=== PATIENT | male | born 1965 | race Caucasian/White ===

== ENCOUNTER → 2018-10-02 | Day surgery (SDC) | payer OTHER ==
[~2018-10-02] MED LIST: Lactated Ringers 1,000 ML IV SCH; Lidocaine 1% 4 ML ONE; Lidocaine 1%/Sod Bicarbonate in NS 8.4% 1 ML Syringe IDERM PRN; Propofol 200 MG/20 ML SDV ONE; Sodium Chloride 0.9% 10 ML Syringe FLUSH PRN; fentaNYL 100 MCG/2 ML SDV ONE
--- NOTE | 2018-10-02 07:36 | PCM.PREANE ---
Preanesthetic Assessment - Procedure Proposed Procedure: egd diagnostic - Anesthesia/Transfusion/Family Hx Anesthesia History: Prior Anesthesia Without Reaction Family History of Anesthesia Reaction: No Transfusion History: No Prior Transfusion(s) - Review of Systems General: No Symptoms Pulmonary: No Symptoms, Cough (has a cold) Cardiovascular: No Symptoms Gastrointestinal: No Symptoms Neurological: No Symptoms Other: Reports: Sinus Problem - Physical Assessment NPO Status Date: 10/01/18 NPO Status Time: 20:30 Pulse: 72 O2 Sat by Pulse Oximetry: 94 Respiratory Rate: 16 Blood Pressure: 145/94 Temperature: 98.7 F Height: 5 ft 11 in Weight: 136 kg ASA Class: 2 Mental Status: Alert & Oriented x3 Airway Class: Mallampati = 1 Dentition: Reports: Normal Dentition Thyro-Mental Finger Breadths: 3 Mouth Opening Finger Breadths: 3 ROM/Head Extension: Full Lungs: Clear to Auscultation, Normal Respiratory Effort Cardiovascular: Regular Rate, Regular Rhythm - Allergies Allergies/Adverse Reactions: Allergies Allergy/AdvReac Type Severity Reaction Status Date / Time erythromycin base Allergy Cannot Verified 09/29/18 11:22 Remember lisinopril Allergy Anaphylactic Verified 09/29/18 11:22 Shock moxifloxacin [From Avelox] Allergy Cannot Verified 09/29/18 11:22 Remember pantoprazole [From Protonix] Allergy Cannot Verified 09/29/18 11:22 Remember Kmuowxp-Dac-Bim Reductase Allergy Muscle Verified 09/29/18 11:22 Inhibitor Aches - Blood Blood Available: No - Acknowledgements Anesthesia Type Planned: MAC Pt an Appropriate Candidate for the Planned Anesthesia: Yes Alternatives and Risks of Anesthesia Discussed w Pt/Guardian: Yes Pt/Guardian Understands and Agrees with Anesthesia Plan: Yes PreAnesthesia Questionnaire HEENT History: Reports: None Other HEENT History: hard of hearing, impacted cerumen, tinnitus Cardiovascular History: Reports: High Cholesterol, Hypertension Respiratory History: Reports: None, Other (See Below) (has a cold now) Gastrointestinal History: Reports: GERD Genitourinary History: Reports: None 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 Musculoskeletal History: Reports: None Other Musculoskeletal History: left knee pain Neurological History: Reports: None Psychiatric History: Reports: None Endocrine/Metabolic History: Reports: None, Obesity/BMI 30+ Hematologic History: Reports: None Immunologic History: Reports: None Oncologic (Cancer) History: Reports: None Dermatologic History: Reports: None - Past Surgical History Head Surgeries/Procedures: Reports: None HEENT Surgical History: Reports: Other (See Below) Other HEENT Surgeries/Procedures: Sinus surgery for deviated septum and neck gland removed Cardiovascular Surgical History: Reports: None Respiratory Surgical History: Reports: None GI Surgical History: Reports: Colonoscopy Male Surgical History: Reports: None Endocrine Surgical History: Reports: None Neurological Surgical History: Reports: None Musculoskeletal Surgical History: Reports: Other (See Below) Other Musculoskeletal Surgeries/Procedures:: Right hand surgery - SUBSTANCE USE Smoking Status *Q: Never Smoker Tobacco Use Within Last Twelve Months: No, Other (See Below) (chew in the past) Second Hand Smoke Exposure: No Days Per Week of Alcohol Use: 1 (rarely) Recreational Drug Use History: No - HOME MEDS Home Medications: Home Meds Ascorbic Acid [Vitamin C] 1,000 mg PO BID 12/12/15 [History] Aspirin 81 mg PO DAILY 12/12/15 [History] Gluc HCl/Csa/Nancy Hy/Hyalur Ac [Glucosamine Chondroitin] 1 tab PO DAILY [History] Losartan/Hydrochlorothiazide [Losartan-HCTZ 100-12.5 MG] 1 tab PO DAILY [History] Ubidecarenone [Co Q-10] 100 mg PO DAILY 12/12/15 [History] Famotidine [Pepcid] 20 mg PO BID 09/29/18 [History] Ibuprofen 800 mg PO DAILY PRN 09/29/18 [History] Multivitamin with Minerals [Multivitamins with Minerals] 1 tab PO DAILY [History] Willow-3/DHA/Epa/Fish Oil [Willow-3 Fish Oil 1,000 MG Sfgl] 1,000 mg PO DAILY [History] atorvaSTATin [Lipitor] 20 mg PO BEDTIME 09/29/18 [History] - CURRENT (IN HOUSE) MEDS Current Meds: Current Medications Lactated Ringer's (Ringers, Lactated) 1,000 mls @ 125 mls/hr IV ASDIRECTED DMITRI Stop: 10/02/18 23:00 Lidocaine/Sodium Bicarbonate (Buffered Lidocaine 1% In Ns 8.4%) 0.25 ml IDERM ONETIME PRN PRN Reason: Prior to IV Start Stop: 10/02/18 18:00 Sodium Chloride (Saline Flush) 10 ml FLUSH ASDIRECTED PRN PRN Reason: Keep Vein Open Stop: 10/02/18 18:00 Discontinued Medications Fentanyl (Sublimaze) Confirm Administered Dose 100 mcg .ROUTE .STK-MED ONE Stop: 10/02/18 07:19 Lidocaine HCl (Xylocaine-Mpf 1%) Confirm Administered Dose 4 mls @ as directed .ROUTE .STK-MED ONE Stop: 10/02/18 07:19 Propofol (Diprivan 20 Ml) Confirm Administered Dose 200 mg .ROUTE .STK-MED ONE Stop: 10/02/18 07:19
--- NOTE | 2018-10-02 08:41 | PCM48HPAN ---
Post Anesthesia Note - EVALUATION WITHIN 48HRS OF ANESTHETIC Vital Signs in Normal Range: Yes Patient Participated in Evaluation: Yes Respiratory Function Stable: Yes Airway Patent: Yes Cardiovascular Function Stable: Yes Hydration Status Stable: Yes Pain Control Satisfactory: Yes Nausea and Vomiting Control Satisfactory: Yes Mental Status Recovered: Yes Pulse Rate: 67 SaO2: 93 Resp Rate: 16 Temperature: 98.4 F Blood Pressure: 142/93
--- NOTE | 2018-10-02 08:46 | PCM.OPNOTE ---
- General Post-Op/Procedure Note Date of Surgery/Procedure: 10/02/18 Operative Procedure(s): EGD with bx Pre Op Diagnosis: dysphagia Post-Op Diagnosis: Same Anesthesia Technique: MAC Primary Surgeon: Regan El EBL in mLs: 0 Complications: None Condition: Good
[2018-10-02 09:14] VITALS: BP 127/90
--- NOTE | 2018-10-04 06:36 | OR ---
DATE OF OPERATION: 10/02/2018 SURGEON: Regan El MD PREOPERATIVE DIAGNOSIS: Dysphagia. POSTOPERATIVE DIAGNOSIS: Dysphagia. OPERATION PERFORMED: Esophagogastroduodenoscopy with biopsy. FINDINGS: Erosions in the antrum, which were biopsied. Flattened gastric mucosa suggesting chronic gastritis and questionable abnormality at the GE junction. Biopsies were taken. Hiatal hernia is present. The second portion of the duodenum, duodenal bulb, pyloric channel, and balance of the esophagus were unremarkable. ANESTHESIA: Done under IV sedation. DESCRIPTION OF PROCEDURE: The patient was taken to the endoscopy room, placed in the supine position, connected to monitoring equipment, given IV sedation. The patient was then placed in left lateral position. Bite block was inserted and video Olympus gastroscope placed into the posterior oropharynx. Under direct vision, it was threaded past the cricopharyngeus, down the esophagus, into the stomach. The stomach was insufflated, and the scope passed through the pylorus to the second portion of the duodenum. It was slowly withdrawn noting the normal second portion of the duodenum, duodenal bulb, pyloric channel. Antrum showed superficial erosions, which were biopsied. Body, cardia, fundus, and stomach were viewed. J-maneuver was performed. No specific abnormality was seen. It did see a sliding hiatal hernia. Scope was withdrawn to the GE junction, which was not sharp and not delineated suggesting edema, of which biopsies were taken to elucidate this area. The rest of the esophagus viewed as the scope withdrawn was unremarkable. The patient tolerated the procedure and sent to recovery room in a stable condition to be followed up in clinic. ESTIMATED BLOOD LOSS: MMODAL /[id number]
== END | disposition home or self-care (01) ==
LOC: JD.SDS 06:57
PROVIDERS: ATTEND Surgery
DX: K20.0 Eosinophilic esophagitis (principal); K29.50 Unspecified chronic gastritis without bleeding; K25.9 Gastric ulcer, unspecified as acute or chronic, without hemorrhage or perforation; K44.9 Diaphragmatic hernia without obstruction or gangrene; I10 Essential (primary) hypertension; E66.9 Obesity, unspecified; Z68.41 Body mass index [BMI] 40.0-44.9, adult; E78.5 Hyperlipidemia, unspecified; Z87.891 Personal history of nicotine dependence; Z79.82 Long term (current) use of aspirin; Z79.899 Other long term (current) drug therapy
CPT/HCPCS: 43239; J2704; J3010; J7120; J2001

== ENCOUNTER 2018-12-18 07:22 | Day surgery (SDC) | payer OTHER ==
[~2018-12-18 07:22] MED LIST changes: -Lidocaine 1% 4 ML ONE; -Propofol 200 MG/20 ML SDV ONE; -fentaNYL 100 MCG/2 ML SDV ONE
--- NOTE | 2018-12-18 07:41 | PCM.PREANE ---
Preanesthetic Assessment - Anesthesia/Transfusion/Family Hx Anesthesia History: Prior Anesthesia Without Reaction Family History of Anesthesia Reaction: No Transfusion History: No Prior Transfusion(s) - Review of Systems General: No Symptoms Pulmonary: No Symptoms Cardiovascular: No Symptoms Gastrointestinal: No Symptoms Neurological: No Symptoms Other: Reports: None - Physical Assessment NPO Status Date: 12/17/18 NPO Status Time: 19:30 Pulse: 73 O2 Sat by Pulse Oximetry: 96 Respiratory Rate: 16 Blood Pressure: 133/94 Temperature: 37.0 C Height: 1.8 m Weight: 136.3 kg ASA Class: 2 Mental Status: Alert & Oriented x3 Airway Class: Mallampati = 2 Dentition: Reports: [place](s) Thyro-Mental Finger Breadths: 3 Mouth Opening Finger Breadths: 3 ROM/Head Extension: Full Lungs: Clear to Auscultation, Normal Respiratory Effort Cardiovascular: Regular Rate, Regular Rhythm - Allergies Allergies/Adverse Reactions: Allergies Allergy/AdvReac Type Severity Reaction Status Date / Time erythromycin base Allergy Cannot Verified 12/15/18 10:00 Remember lisinopril Allergy Anaphylactic Verified 12/15/18 10:00 Shock moxifloxacin [From Avelox] Allergy Cannot Verified 12/15/18 10:00 Remember pantoprazole [From Protonix] Allergy Cannot Verified 12/15/18 10:00 Remember Yjwhbgo-Avl-Hnr Reductase AdvReac Muscle Verified 12/15/18 10:00 Inhibitor Aches - Anesthesia Plan Pre-Op Medication Ordered: None - Acknowledgements Anesthesia Type Planned: MAC Pt an Appropriate Candidate for the Planned Anesthesia: Yes Alternatives and Risks of Anesthesia Discussed w Pt/Guardian: Yes Pt/Guardian Understands and Agrees with Anesthesia Plan: Yes PreAnesthesia Questionnaire HEENT History: Reports: Impaired Vision Other HEENT History: hard of hearing, impacted cerumen, tinnitus Cardiovascular History: Reports: High Cholesterol, Hypertension Respiratory History: Reports: None Gastrointestinal History: Reports: Gastritis, GERD, Hiatal Hernia, Other (See Below) Other Gastrointestinal History: ELEVATED LIPOPROTEIN, GASTRIC EROSIONS, ESOPHAGITIS Genitourinary History: Reports: None 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 Musculoskeletal History: Reports: None Other Musculoskeletal History: left knee pain Neurological History: Reports: None Psychiatric History: Reports: None Endocrine/Metabolic History: Reports: None Hematologic History: Reports: None Immunologic History: Reports: None Oncologic (Cancer) History: Reports: None Dermatologic History: Reports: None - Past Surgical History Head Surgeries/Procedures: Reports: None HEENT Surgical History: Reports: Naso-Sinus Surgery Cardiovascular Surgical History: Reports: None Respiratory Surgical History: Reports: None GI Surgical History: Reports: Colonoscopy, EGD Female Surgical History: Reports: None Male Surgical History: Reports: None Endocrine Surgical History: Reports: None Neurological Surgical History: Reports: None Musculoskeletal Surgical History: Reports: Other (See Below) Other Musculoskeletal Surgeries/Procedures:: RIGHT HAND SURGERY Oncologic Surgical History: Reports: None Dermatological Surgical History: Reports: None - SUBSTANCE USE Smoking Status *Q: Former Smoker Recreational Drug Use History: No - HOME MEDS Home Medications: Home Meds Aspirin 81 mg PO DAILY 12/12/15 [History] Gluc HCl/Csa/Nancy Hy/Hyalur Ac [Glucosamine Chondroitin] 1 tab PO BID 12/12/15 [ History] Losartan/Hydrochlorothiazide [Losartan-HCTZ 100-12.5 MG] 1 tab PO DAILY [History] Ubidecarenone [Co Q-10] 100 mg PO DAILY 12/12/15 [History] Ibuprofen 800 mg PO DAILY PRN 09/29/18 [History] Multivitamin with Minerals [Multivitamins with Minerals] 1 tab PO DAILY [History] Osgood-3/DHA/Epa/Fish Oil [Osgood-3 Fish Oil 1,000 MG Sfgl] 1,000 mg PO DAILY [History] atorvaSTATin [Lipitor] 20 mg PO BEDTIME 09/29/18 [History] Omeprazole Magnesium [Prilosec Otc] 20 mg PO QAM 12/15/18 [History] - CURRENT (IN HOUSE) MEDS Current Meds: Current Medications Lactated Ringer's (Ringers, Lactated) 1,000 mls @ 125 mls/hr IV ASDIRECTED MDITRI Stop: 12/18/18 23:00 Lidocaine/Sodium Bicarbonate (Buffered Lidocaine 1% In Ns 8.4%) 0.25 ml IDERM ONETIME PRN PRN Reason: Prior to IV Start Stop: 12/18/18 18:00 Sodium Chloride (Saline Flush) 10 ml FLUSH ASDIRECTED PRN PRN Reason: Keep Vein Open Stop: 12/18/18 18:00
[2018-12-18] MEDS ORDERED: fentaNYL 100 MCG/2 ML SDV ONE (08:06)
[2018-12-18] MEDS ORDERED: Propofol 200 MG/20 ML SDV ONE ×2 (08:06→08:09)
[2018-12-18] MEDS ORDERED: Midazolam 1 MG/ML 2 ML SDV ONE (08:07)
--- NOTE | 2018-12-18 08:36 | PCM.OPNOTE ---
- General Post-Op/Procedure Note Date of Surgery/Procedure: 12/18/18 Operative Procedure(s): EGD with biopsy and balloon dilitation Pre Op Diagnosis: dysphagia Post-Op Diagnosis: Same Anesthesia Technique: MAC Primary Surgeon: Regan El EBL in mLs: 0 Complications: None Condition: Good
[2018-12-18 09:35] VITALS: BP 127/70
--- NOTE | 2018-12-18 15:05 | OR ---
DATE OF OPERATION: 12/18/2018 SURGEON: Regan El MD PREOPERATIVE DIAGNOSIS: Dysphagia, history of eosinophilic esophagitis. POSTOPERATIVE DIAGNOSIS: Dysphagia, history of eosinophilic esophagitis. OPERATION PERFORMED: EGD with biopsy and balloon dilatation to 54[place] done under IV sedation. FINDINGS: Second portion of the duodenum, duodenal bulb, and pyloric channel, antrum, body, cardia, stomach, fundus was unremarkable. Hiatus showed a small sliding hiatal hernia. GE junction about 40 cm. The Z-line was not sharp and there was inflammation around there. Four-quadrant biopsies were taken. Rest of the esophagus was unremarkable and the area was dilated empirically. DESCRIPTION OF PROCEDURE: The patient taken to the endoscopy room, placed in a supine position, connected to monitoring equipment given IV sedation and placed in left lateral position. Bite block was inserted. A video Olympus gastroscope placed in a posterior oropharynx. Under direct vision, threaded past the cricopharyngeus down the esophagus, into the stomach. The stomach was insufflated and the scope passed through the pylorus to the second portion of the duodenum were slowly withdrawn showing normal second portion of the duodenal bulb and pyloric channel. Antrum was unremarkable. Biopsies were taken that could be looking for H pylori. The body and cardia of the stomach and J-maneuver showed the cardia and the fundus and a small sliding hiatal hernia. Scope was withdrawn and the GE junction showed some inflammation there and the Z-line was not readily evident among the inflammation. Four-quadrant biopsies were taken. A balloon was then inserted down the scope and this area was dilated up to 54-[place]. The scope was withdrawn showing no other pathology. The patient tolerated procedure and will be followed up in the clinic. ANESTHESIA: ESTIMATED BLOOD LOSS: MMODAL /[id number]
== END 2018-12-18 09:23 | disposition home or self-care (01) ==
LOC: JD.SDS 07:22
PROVIDERS: ATTEND Surgery
DX: K20.0 Eosinophilic esophagitis (principal); I10 Essential (primary) hypertension; E78.00 Pure hypercholesterolemia, unspecified; K21.9 Gastro-esophageal reflux disease without esophagitis; Z87.891 Personal history of nicotine dependence; Z79.82 Long term (current) use of aspirin; Z79.899 Other long term (current) drug therapy; Z88.1 Allergy status to other antibiotic agents; Z88.8 Allergy status to other drugs, medicaments and biological substances
CPT/HCPCS: 43239; 43249; J2250; J2704; J3010; J7120

== ENCOUNTER 2021-01-26 07:44 | Day surgery (SDC) | payer BC, OTHER ==
[~2021-01-26 07:44] MED LIST changes: +Lidocaine 1% 4 ML ONE; +Propofol 200 MG/20 ML SDV ONE
--- NOTE | 2021-01-26 08:18 | PCM.PREANE ---
Preanesthetic Assessment - Procedure Proposed Procedure: EGD - Anesthesia/Transfusion/Family Hx Anesthesia History: Prior Anesthesia Without Reaction Family History of Anesthesia Reaction: No Transfusion History: No Prior Transfusion(s) Intubation History: Unknown - Review of Systems General: No Symptoms Pulmonary: No Symptoms Cardiovascular: No Symptoms Gastrointestinal: No Symptoms Neurological: No Symptoms Other: Reports: None - Physical Assessment NPO Status Date: 01/25/21 NPO Status Time: 20:00 Vital Signs: Last Vital Signs Temp 36.8 C 01/26/21 08:00 Pulse 71 01/26/21 08:00 Resp 16 01/26/21 08:00 BP 111/85 01/26/21 08:00 Pulse Ox 96 01/26/21 08:00 ASA Class: 3 Mental Status: Alert & Oriented x3 Airway Class: Mallampati = 4 Dentition: Reports: Normal Dentition Thyro-Mental Finger Breadths: 3 Mouth Opening Finger Breadths: 3 ROM/Head Extension: Full Lungs: Clear to Auscultation, Normal Respiratory Effort Cardiovascular: Regular Rate, Regular Rhythm - Allergies Allergies/Adverse Reactions: Allergies Allergy/AdvReac Type Severity Reaction Status Date / Time erythromycin base Allergy Cannot Verified 01/23/21 10:15 Remember lisinopril Allergy Anaphylactic Verified 01/23/21 10:15 Shock magnesium Allergy Cannot Verified 01/23/21 10:15 Remember moxifloxacin [From Avelox] Allergy Cannot Verified 01/23/21 10:15 Remember pantoprazole [From Protonix] Allergy Cannot Verified 01/23/21 10:15 Remember Fqwgdzs-Wvm-Pbd Reductase AdvReac Muscle Verified 01/23/21 10:15 Inhibitor Aches - Blood Blood Available: No - Anesthesia Plan Pre-Op Medication Ordered: None - Acknowledgements Anesthesia Type Planned: MAC Pt an Appropriate Candidate for the Planned Anesthesia: Yes Alternatives and Risks of Anesthesia Discussed w Pt/Guardian: Yes Pt/Guardian Understands and Agrees with Anesthesia Plan: Yes PreAnesthesia Questionnaire HEENT History: Reports: Impaired Vision Other HEENT History: hard of hearing, impacted cerumen, tinnitus Cardiovascular History: Reports: High Cholesterol, Hypertension Respiratory History: Reports: None Gastrointestinal History: Reports: Gastritis, GERD, Hiatal Hernia, Other (See Below) Other Gastrointestinal History: ELEVATED LIPOPROTEIN, GASTRIC EROSIONS, ESOPHAGITIS, acid indigestion Genitourinary History: Reports: None 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 Musculoskeletal History: Other Musculoskeletal History: left knee pain Neurological History: Reports: None Psychiatric History: Reports: None Endocrine/Metabolic History: Reports: Obesity/BMI 30+ Hematologic History: Reports: None Immunologic History: Reports: None Oncologic (Cancer) History: Reports: None Dermatologic History: Reports: None - Past Surgical History Head Surgeries/Procedures: Reports: None HEENT Surgical History: Reports: Naso-Sinus Surgery Other HEENT Surgeries/Procedures: Sinus surgery for deviated septum and neck gland removed Cardiovascular Surgical History: Reports: None Other Cardiovascular Surgeries/Procedures: angioplasty Respiratory Surgical History: Reports: None GI Surgical History: Reports: Colonoscopy, EGD Female Surgical History: Reports: None Male Surgical History: Reports: None Endocrine Surgical History: Reports: None Neurological Surgical History: Reports: None Musculoskeletal Surgical History: Reports: Other (See Below) Other Musculoskeletal Surgeries/Procedures:: RIGHT HAND SURGERY Oncologic Surgical History: Reports: None - SUBSTANCE USE Tobacco Use Status *Q: Former Tobacco User Recreational Drug Use History: No - HOME MEDS Home Medications: Home Meds Aspirin 81 mg PO DAILY 12/12/15 [History] Losartan/Hydrochlorothiazide [Losartan-HCTZ 100-12.5 MG] 1 tab PO DAILY 12/12/15 [History] Ubidecarenone [Co Q-10] 100 mg PO DAILY 12/12/15 [History] [place]-3/DHA/Epa/Fish Oil [[place]rick-3 Fish Oil 1,000 MG Sfgl] 1,000 mg PO DAILY 09/29/18 [History] atorvaSTATin [Lipitor] 20 mg PO BEDTIME 09/29/18 [History] Ascorbic Acid [Vitamin C] 1,000 mg PO BID 12/18/18 [History] Ibuprofen 200 - 600 mg PO Q6H PRN 12/19/20 [History] Multivitamin 1 tab PO DAILY 12/19/20 [History] Omeprazole Magnesium [Prilosec Otc] 20 mg PO DAILY 12/19/20 [History] - CURRENT (IN HOUSE) MEDS Current Meds: Current Medications Lactated Ringer's (Ringers, Lactated) 1,000 mls @ 125 mls/hr IV ASDIRECTED DMITRI Stop: 01/26/21 23:00 Last Admin: 01/26/21 08:00 Dose: 125 mls/hr Documented by: Lidocaine/Sodium Bicarbonate (Lidocaine 1%/Sod Bicarbonate In Ns 8.4% 1 Ml Syringe) 0.25 ml IDERM ONETIME PRN PRN Reason: Prior to IV Start Stop: 01/26/21 18:00 Last Admin: 01/26/21 08:00 Dose: 0.25 ml Documented by: Sodium Chloride (Sodium Chloride 0.9% 10 Ml Syringe) 10 ml FLUSH ASDIRECTED PRN PRN Reason: Keep Vein Open Stop: 01/26/21 18:00 Discontinued Medications Lactated Ringer's (Ringers, Lactated) 1,000 mls @ 125 mls/hr IV ASDIRECTED DMITRI Stop: 12/22/20 23:00 Lidocaine HCl (Xylocaine-Mpf 1%) Confirm Administered Dose 4 mls @ as directed .ROUTE .STK-MED ONE Stop: 01/26/21 07:28 Lidocaine/Sodium Bicarbonate (Lidocaine 1%/Sod Bicarbonate In Ns 8.4% 1 Ml Syringe) 0.25 ml IDERM ONETIME PRN PRN Reason: Prior to IV Start Stop: 12/22/20 18:00 Propofol (Propofol 200 Mg/20 Ml Sdv) Confirm Administered Dose 400 mg .ROUTE .STK-MED ONE Stop: 01/26/21 07:27 Sodium Chloride (Sodium Chloride 0.9% 10 Ml Syringe) 10 ml FLUSH ASDIRECTED PRN PRN Reason: Keep Vein Open Stop: 12/22/20 18:00
--- NOTE | 2021-01-26 09:15 | PCM48HPAN ---
Post Anesthesia Note - EVALUATION WITHIN 48HRS OF ANESTHETIC Vital Signs in Normal Range: Yes Patient Participated in Evaluation: Yes Respiratory Function Stable: Yes Airway Patent: Yes Cardiovascular Function Stable: Yes Hydration Status Stable: Yes Pain Control Satisfactory: Yes Nausea and Vomiting Control Satisfactory: Yes Mental Status Recovered: Yes Vital Signs: Last Vital Signs 152/103 96 66 16 97.3 Temp 36.8 C 01/26/21 08:00 Pulse 71 01/26/21 08:00 Resp 16 01/26/21 08:00 BP 111/85 01/26/21 08:00 Pulse Ox 96 01/26/21 08:00
[2021-01-26 09:58] VITALS: BP 128/93; PULSE 67
--- NOTE | 2021-01-26 13:47 | PROC ---
DATE OF OPERATION: 01/26/2021 SURGEON: Maria Teresa Hurtado MD PREOPERATIVE DIAGNOSIS: Quintero esophagus. POSTOPERATIVE DIAGNOSIS: Mild esophagitis and gastritis. OPERATION PERFORMED: Esophagogastroduodenoscopy. ESTIMATED BLOOD LOSS: Minimal. ANESTHESIA: Monitored anesthesia care. FINDINGS: 1. Gastritis, mild. 2. Mild esophagitis. 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 Surveillance EGD was recommended in one year. The patient has returned to clinic and was evaluated for this repeat EGD. The patient has no other problems. He has longstanding acid reflux that is controlled with medication. I discussed with the patient about the procedure, and we decided to proceed with the procedure. Informed consent was obtained. DETAILS OF PROCEDURE: The patient was taken to procedure room, placed in left lateral decubitus position. A time-out was performed and then monitored anesthesia care was induced. A bite block was placed and we started with the scope into the mouth and taken all the way down to the second portion of duodenum. Duodenum was normal - first and second portions as well as bulb. Then, in the antrum, there was localized linear erythema. There were no clear ulcers, just inflamed areas. Biopsies were taken from the antrum with cold forceps. On retroflexion, there were no abnormalities. The rest of the stomach appeared normal. We went back into the GE junction. This area appeared to have mild esophagitis, I will rate this as LA grade A esophagitis. I did not see any salmon-colored mucosa to indicate Quintero esophagitis visually. However, I took biopsies of the GE junction as well as the distal esophagus about 1 cm apart in four quadrants to be able to evaluate this area. EBL was minimal. All biopsies were taken with cold forceps. Once this was done, then the esophagus was reexamined. The rest of the esophagus appeared normal. We went back into the stomach, air suctioned out and procedure concluded. The patient will be allowed to return home and come back in clinic in two weeks for discussion of pathology results. MMODAL /[id number] [facility]
== END 2021-01-26 09:43 | disposition home or self-care (01) ==
LOC: JD.SDS 07:44
PROVIDERS: ATTEND Surgery
DX: K29.70 Gastritis, unspecified, without bleeding (principal); K20.90 Esophagitis, unspecified without bleeding; I10 Essential (primary) hypertension; E66.01 Morbid (severe) obesity due to excess calories; E78.5 Hyperlipidemia, unspecified; G47.33 Obstructive sleep apnea (adult) (pediatric); E78.00 Pure hypercholesterolemia, unspecified; K21.9 Gastro-esophageal reflux disease without esophagitis; Z86.16 Personal history of COVID-19; Z98.890 Other specified postprocedural states; Z88.8 Allergy status to other drugs, medicaments and biological substances; Z79.82 Long term (current) use of aspirin; Z79.899 Other long term (current) drug therapy; Z88.1 Allergy status to other antibiotic agents; Z87.891 Personal history of nicotine dependence; Z68.42 Body mass index [BMI] 45.0-49.9, adult
CPT/HCPCS: J2704; J7120

== ENCOUNTER 2022-03-22 10:00 | Day surgery (SDC) | payer BC ==
[~2022-03-22 10:00] MED LIST changes: -Lidocaine 1% 4 ML ONE; -Propofol 200 MG/20 ML SDV ONE; +Sodium Chloride 0.9% 10 ML Syringe FLUSH SCH
[2022-03-22] MEDS ORDERED: Lidocaine 1% 4 ML ONE (10:07)
[2022-03-22] MEDS ORDERED: Propofol 200 MG/20 ML SDV ONE ×3 (10:07→12:13)
[2022-03-22 13:26] VITALS: BP 109/83; PULSE 701
== END 2022-03-22 13:22 | disposition home or self-care (01) ==
LOC: JD.SDS 10:00
PROVIDERS: ATTEND Surgery
DX: Z12.11 Encounter for screening for malignant neoplasm of colon (principal); D12.2 Benign neoplasm of ascending colon; D12.3 Benign neoplasm of transverse colon; K57.30 Diverticulosis of large intestine without perforation or abscess without bleeding; K29.70 Gastritis, unspecified, without bleeding; K20.0 Eosinophilic esophagitis; K29.50 Unspecified chronic gastritis without bleeding; K31.89 Other diseases of stomach and duodenum; E78.00 Pure hypercholesterolemia, unspecified; H54.7 Unspecified visual loss; E66.9 Obesity, unspecified; I10 Essential (primary) hypertension; Z98.890 Other specified postprocedural states; Z88.8 Allergy status to other drugs, medicaments and biological substances; Z88.1 Allergy status to other antibiotic agents; Z79.899 Other long term (current) drug therapy
CPT/HCPCS: 43239; 45380; 45385; J2704; J7120; 00813

== ENCOUNTER 2023-03-09 07:53 | Day surgery (SDC) | payer BC ==
[2023-03-09] MEDS ORDERED: fentaNYL 100 MCG/2 ML SDV ONE (09:22)
[2023-03-09] MEDS ORDERED: Propofol 200 MG/20 ML SDV ONE ×2 (09:22→09:59)
[2023-03-09 11:06] VITALS: BP 118/74; PULSE 72
== END 2023-03-09 10:54 | disposition home or self-care (01) ==
LOC: JD.SDS 07:53
PROVIDERS: ATTEND Surgery
DX: Z12.11 Encounter for screening for malignant neoplasm of colon (principal); K64.9 Unspecified hemorrhoids; I10 Essential (primary) hypertension; E78.00 Pure hypercholesterolemia, unspecified; G89.29 Other chronic pain; M25.561 Pain in right knee; M25.562 Pain in left knee; K21.9 Gastro-esophageal reflux disease without esophagitis; E66.01 Morbid (severe) obesity due to excess calories; Z86.010 Personal history of colon polyps; Z79.82 Long term (current) use of aspirin; Z79.899 Other long term (current) drug therapy; Z88.1 Allergy status to other antibiotic agents; Z88.8 Allergy status to other drugs, medicaments and biological substances; Z68.41 Body mass index [BMI] 40.0-44.9, adult
CPT/HCPCS: 45378; J2704; J3010; J7120